=== PATIENT | male | born 1970 | race Caucasian/White ===

== ENCOUNTER 2017-12-27 10:15 | Emergency (ER) | payer BC, OTHER ==
[~2017-12-27] VITALS: Ht 175.3 cm; Wt 134.5 kg
[~2017-12-27 10:15] MED LIST: TELM80TA6 PO
[2017-12-27 10:21] VITALS: PULSE 71; TEMP 37.1; O2SAT 98; Ht 175.3 cm; Wt 134.5 kg
--- NOTE | 2017-12-27 10:27 | EMERGENCY ROOM VISIT NOTE ---
ED Visit Note First contact with patient: 10:24 Resident Physician Supervision Note: I interviewed and examined the patient. Discussed with Dr. Branch and agree with findings and plan as documented in the note. Documented By: Arnold Presley It should be noted that this patient presents to the emergency department with significant barriers to his care during a period of high volume high acuity. The patient is belligerent and irate. He is threatening everybody with complaints to the [employer] over the fact that we are wearing masks. I informed the patient that this is an emergency department and this is appropriate measures to prevent the spread of disease as set forth by the CDC. I also offered to write my words down for the patient however this made him even angrier as "this is demeaning". I then informed the patient that he had his medical screening examination when he checked into the emergency department. As he is afebrile here normotensive, not tachycardic, and not hypoxic he can absolutely leave if he is not happy. He was warned if he continued to make further trouble in the emergency department he would absolutely be thrown out. It should also be noted that the patient has complained about everything done to him. He has refused an IV. I recommended he receive breathing treatments due to his history of COPD. Current/Historical Medications Scheduled Telmisartan/Hctz (Micardis Hct 80MG/12.5MG), 1 TAB PO DAILY Allergies Uncoded Allergies: PREDNISONE (Allergy, Unknown, "HALLUCINATIONS", 03/07/04) Vital Signs Date Time Temp Pulse Resp B/P (MAP) Pulse Ox O2 Delivery O2 Flow Rate FiO2 12/27/17 10:21 37.1 71 18 145/81 98 Room Air Laboratory Results Test 12/27/17 10:34 12/27/17 10:50 Medications Administered Medications (Trade) Dose Ordered Sig/Yolanda Route Start Time Stop Time Status Last Admin Dose Admin Albuterol/ Ipratropium (Duoneb) 3 ml Q4R STAT INH 12/27/17 10:47 12/27/17 10:48 DC 12/27/17 11:01 3 ML Departure Information Impression Primary Impression: Upper respiratory infection Referrals Dora Posey D.OIdalmis (PCP) Patient Instructions My [facility]
[2017-12-27] MEDS ORDERED: ALBUT/IPRATROP 3MG/0.5MG NEB 3 ML VIAL INH STA ×2 (10:46→10:47)
--- NOTE | 2017-12-27 10:56 | EMERGENCY ROOM VISIT NOTE ---
History First contact with patient: 10:24 Chief Complaint: FLU LIKE SX Stated Complaint: FLU W/RED MUCOUS WHEN COUGHIG History of Present Illness The patient is a 47 year old male who presents to the Emergency Room with complaints of flu-like symptoms including coughing with some bright red sputum x 1 earlier this morning. Flu symptoms started ~24 hours ago with fever, cough, myalgias, and chest burning. Patient treated his fever with Tylenol. Patient denies sore throat, trouble swallowing, bleeding/bruising, or previous episode of hemoptysis. He has a history of asthma and COPD, managed with Singulair, and though he has a rescue inhaler, and despite feeling subjectively dyspneic, he does not feel his symptoms are severe enough to warrant use of albuterol inhaler because he has not had any full blown attack of asthma. He continues to smoke 2 cigars daily. He has a history of acid reflex, but says today's pain doesn't feel the same. He otherwise denies headaches, abdominal pain, lower extremity swelling or rashes. He is tolerating diet without nausea or vomiting, ambulating without exacerbating symptoms, and voiding and stooling appropriately. Review of Systems See HPI for pertinent positives and negatives. A total of ten systems were reviewed and were otherwise negative. Social History Smoking Status: Current Every Day Smoker Current/Historical Medications Scheduled Oseltamivir Phosphate (Tamiflu), 1 CAP PO BID Telmisartan/Hctz (Micardis Hct 80MG/12.5MG), 1 TAB PO DAILY Physical Exam Vital Signs Date Time Temp Pulse Resp B/P (MAP) Pulse Ox O2 Delivery O2 Flow Rate FiO2 12/27/17 11:34 18 142/80 12/27/17 10:21 37.1 71 18 145/81 98 Room Air Physical Exam GENERAL: alert, well appearing, thin, sitting in bed, no acute distress, non- toxic HEAD: Normocephalic, atraumatic. Diffuse sinus tenderness. EYES: PERRL, EOMI, normal sclera and conjunctiva OROPHARYNX: No exudate, no erythema, no lesions, or evidence of bright red or old blood. Evidence of post nasal drip. Lips, buccal mucosa, and tongue normal and mucous membranes are dry NECK: Supple, no nuchal rigidity, no adenopathy, non-tender LUNGS: Clear to auscultation. Normal chest wall mechanics, good air entry. No crackles, or wheezes HEART: RRR, S1 and S2 normal, no murmurs appreciated CHEST: No reproducible tenderness. ABDOMEN: Soft, non-tender, normo-active bowel sounds, no masses, no rebound or guarding. BACK: Back is symmetrical on inspection, no deformities, no midline tenderness, no CVA tenderness. SKIN: Warm, pink, dry. No erythema, rashes, or bruising. EXTREMITIES: Grossly normal. Moving all 4 limbs, strength 5/5. No pitting edema. Calves non tender. NEURO: Alert, Ox3. No focal deficits. Normal sensorium, cranial nerves II-XII grossly intact, normal speech. PSYCH: Mood is irritated Medical Decision & Procedures ER Provider Diagnostic Interpretation: CHEST ONE VIEW PORTABLE HISTORY: Short of breath. Cough. COMPARISON: None. FINDINGS: The lungs are clear. The heart is mildly enlarged. This may be accentuated by the low lung volumes. No pleural effusions. No pneumothorax. IMPRESSION: 1. No focal lung consolidations. 2. Mild cardiomegaly which may be accentuated by the low lung volumes. Laboratory Results 12/27/17 10:50 Red Blood Count 5.04, Mean Corpuscular Volume 85.5, Mean Corpuscular Hemoglobin 29.8, Mean Corpuscular Hemoglobin Concent 34.8, Mean Platelet Volume 9.2, Neutrophils (%) (Auto) 62.7, Lymphocytes (%) (Auto) 18.4, Monocytes (%) (Auto) 16.9, Eosinophils (%) (Auto) 1.4, Basophils (%) (Auto) 0.5, Neutrophils # (Auto ) 4.58, Lymphocytes # (Auto) 1.35, Monocytes # (Auto) 1.24, Eosinophils # (Auto ) 0.10, Basophils # (Auto) 0.04 12/27/17 10:50 Test 12/27/17 10:34 12/27/17 10:50 Influenza Type A Antigen POS for Influ A (NEG) Influenza Type B Antigen Neg for Influ B (NEG) White Blood Count 7.32 K/uL (4.8-10.8) Red Blood Count 5.04 M/uL (4.7-6.1) Hemoglobin 15.0 g/dL (14.0-18.0) Hematocrit 43.1 % (42-52) Mean Corpuscular Volume 85.5 fL (80-100) Mean Corpuscular Hemoglobin 29.8 pg (25-34) Mean Corpuscular Hemoglobin Concent 34.8 g/dl (32-36) Platelet Count 256 K/uL (130-400) Mean Platelet Volume 9.2 fL (7.4-10.4) Neutrophils (%) (Auto) 62.7 % Lymphocytes (%) (Auto) 18.4 % Monocytes (%) (Auto) 16.9 % Eosinophils (%) (Auto) 1.4 % Basophils (%) (Auto) 0.5 % Neutrophils # (Auto) 4.58 K/uL (1.4-6.5) Lymphocytes # (Auto) 1.35 K/uL (1.2-3.4) Monocytes # (Auto) 1.24 K/uL (0.11-0.59) Eosinophils # (Auto) 0.10 K/uL (0-0.5) Basophils # (Auto) 0.04 K/uL (0-0.2) RDW Standard Deviation 42.9 fL (36.4-46.3) RDW Coefficient of Variation 13.9 % (11.5-14.5) Immature Granulocyte % (Auto) 0.1 % Immature Granulocyte # (Auto) 0.01 K/uL (0.00-0.02) Prothrombin Time 10.6 SECONDS (9.0-12.0) Prothromb Time International Ratio 1.0 (0.9-1.1) Activated Partial Thromboplast Time 30.2 SECONDS (21.0-31.0) Partial Thromboplastin Ratio 1.2 Anion Gap 6.0 mmol/L (3-11) Est Creatinine Clear Calc Drug Dose 109.6 ml/min Estimated GFR () 89.9 Estimated GFR (Non- 77.6 BUN/Creatinine Ratio 12.8 (10-20) Calcium Level 8.9 mg/dl (8.5-10.1) Troponin I < 0.015 ng/ml (0-0.045) Medications Administered Medications (Trade) Dose Ordered Sig/Yolanda Route Start Time Stop Time Status Last Admin Dose Admin Albuterol/ Ipratropium (Duoneb) 3 ml Q4R STAT INH 12/27/17 10:47 12/27/17 10:48 DC 12/27/17 11:01 3 ML Medical Decision Prior records/ancillary studies reviewed. Triage Nursing notes reviewed. Additional history obtained from the patient. The patient's history was concerning for possible hemoptysis on a background of coughing fits and flu-like symptoms. Differential diagnosis: Etiologies such as bronchitis, coagulopathy, Winsome-Redman tear, esophagitis, peptic ulcer disease, variceal bleed, gastritis, epistaxis, pulmonary embolus as well as others were entertained. Physical exam: As above. The patients vital signs were within acceptable range ER treatment provided: Patient declined IV placement and IV fluids. DuoNeb provided. On reassessment the patient felt better. Diagnostics interpreted by me: ECG: NSR The labs revealed CBC and coag profile WNL. BMP showed hypokalemia, patient will supplement dietarily. Influenza swab positive for flu A Imaging studies: CXR showed no focal lung consolidations. This appears to be consistent with influenza. By the evaluation outlined above emergent etiologies such as esophageal perforation, peptic ulcer disease, variceal bleed, coagulopathy, gastritis, epistaxis, malignancy, inflammatory bowel disease, as well as others were deemed relatively unlikely. The patient informed about the findings as listed above. All questions were answered, though he was initially irritated by the use of masks by all healthcare providers, he was ultimately pleased with the treatment. Return instructions were outlined and the patient was discharged in stable condition. Outpatient prescription management: Tamiflu 75mg BID x 5 days was prescribed. Discussed benefits and adverse reactions, namely GI symptoms, patient understood, but still wanted to treat the flu with the medication. Referral: The patient was referred back to their primary care physician for follow-up in 2 to 3 days for a recheck of the current condition Blood Pressure Screening Patient's blood pressure: Elevated blood pressure Impression Primary Impression: Influenza A Departure Information Dispostion Home / Self-Care Condition GOOD Prescriptions Oseltamivir Phosphate (Tamiflu) 75 Mg Cap 1 CAP PO BID for 5 Days, #10 CAP Prov: Alka. Branch MD 12/27/17 Referrals Dora Posey D.O. (PCP) Patient Instructions My [facility] Resident Tracking Resident Involvement: Resident Care Provided Care Provided: Adult ED
[2017-12-27 11:08] LABS: BASO % 0.5 %; BASO ABS # 0.04 K/uL (0-0.2); EOS % 1.4 %; HEMATOCRIT 43.1 % (42-52); IG# 0.01 K/uL (0.00-0.02); LYMPH % 18.4 %; LYMPH ABS # 1.35 K/uL (1.2-3.4); MEAN CELL VOLUME 85.5 fL (80-100); MEAN CORPUSCULAR HEMOGLOBIN 29.8 pg (25-34); MEAN CORPUSCULAR HGB CONC 34.8 g/dl (32-36); MEAN PLATELET VOLUME 9.2 fL (7.4-10.4); MONO % 16.9 %; MONO ABS # 1.24 K/uL (0.11-0.59); NEUT % 62.7 %; NEUT ABS # 4.58 K/uL (1.4-6.5); PLATELET COUNT 256 K/uL (130-400); RED CELL DISTRIBUTION WIDTH CV 13.9 % (11.5-14.5); RED CELL DISTRIBUTION WIDTH SD 42.9 fL (36.4-46.3); WHITE BLOOD COUNT 7.32 K/uL (4.8-10.8)
[2017-12-27 11:13] LABS: INFLUENZA B ANTIGEN Neg for Influ B (NEG)
[2017-12-27 11:21] LABS: PTT PATIENT 30.2 SECONDS (21.0-31.0)
[2017-12-27] MEDS ORDERED: OSEL75CA23 PO (11:25)
[2017-12-27 11:30] LABS: BLOOD UREA NITROGEN 14 mg/dl (7-18); CALCIUM 8.9 mg/dl (8.5-10.1); CARBON DIOXIDE 30 mmol/L (21-32); CREATININE 1.11 mg/dl (0.60-1.40); GLUCOSE 109 mg/dl (70-99); POTASSIUM 3.1 mmol/L (3.5-5.1); SODIUM 140 mmol/L (136-145)
--- NOTE | 2017-12-27 11:31 | DIAGNOSTIC IMAGING REPORT ---
CHEST ONE VIEW PORTABLE HISTORY: Short of breath. Cough. COMPARISON: None. FINDINGS: The lungs are clear. The heart is mildly enlarged. This may be accentuated by the low lung volumes. No pleural effusions. No pneumothorax. IMPRESSION: 1. No focal lung consolidations. 2. Mild cardiomegaly which may be accentuated by the low lung volumes. Electronically signed by: Torsten Walls M.D. 12/27/2017 11:30 AM Dictated Date/Time: 12/27/2017 11:29 AM
[2017-12-27 11:34] VITALS: BP 142/80
== END 2017-12-27 11:32 | disposition home or self-care (01) ==
LOC: C.EDB 10:18
DX: J10.1 Influenza due to other identified influenza virus with other respiratory manifestations (principal); J44.9 Chronic obstructive pulmonary disease, unspecified; E87.6 Hypokalemia; K21.9 Gastro-esophageal reflux disease without esophagitis; F17.290 Nicotine dependence, other tobacco product, uncomplicated; Z79.899 Other long term (current) drug therapy